=== PATIENT | male | born 1985 | race Caucasian/White ===

== ENCOUNTER 2022-02-04 18:25 | Emergency (ER) | payer BC, SELFPAY ==
[2022-02-04 18:28] VITALS: BP 121/85; PULSE 89; RESP 16; TEMP 36.3; O2SAT 97
--- NOTE | 2022-02-04 18:30 | DI.RAD_ITS ---
Exam(s) XR FINGER RT INDEX EXAM: XR FINGER RT INDEX CLINICAL HISTORY: finger vs rebar. TECHNIQUE: 2D digital imaging was performed of the right finger. Three views were obtained. PA/AP, oblique, and lateral views were obtained. COMPARISON: No exams were available for comparison FINDINGS: BONES: No acute fracture is present. No bony destructive lesion is seen. JOINTS: No dislocation present. SOFT TISSUE: Normal. IMPRESSION: No evidence of acute fracture, dislocation, or subluxation. DATA REPOSITORY: RADIATION DOSE DELIVERED:
--- NOTE | 2022-02-04 18:35 | W.ED.GENAD ---
Discharge Plan Disposition Patient Disposition: HOME Condition: Stable Discharge Details Clinical Impression: Laceration of finger of right hand Primary Care Provider: Unknown,Unknown ED Provider: Jeremi Suresh Home Meds and New Rx's Prescriptions: No Action No Known Home Meds Discharge Instructions Instructions: Finger Laceration (ED) Additional Instructions: X-ray is unremarkable. [id number] Tylenol and/or Motrin as directed for discomfort. Change antibiotic dressing daily. Wear splint to avoid bending your joint for the next 7 days. Please watch for new or worsening symptoms and return to the ER for any concerns. Medical Decision Making 37-year-old male, [id number], presents after he was hammering a piece of steel, missed, and struck his hand on the piece of rebar, he was not wearing gloves. There is a laceration present but is an avulsion in nature and there is nothing to repair. Will obtain x-ray to rule out any bony involvement. Patient believes tetanus status is up-to-date. X-ray unremarkable. The wound was thoroughly cleaned. Remains neuro, vascular, tendon intact. No closure required. Antibiotic dressing and finger splint applied. Standard discharge and return precautions were provided. Patient understands, is agreeable to this plan, and has no additional questions or concerns upon discharge. This documentation was generated using [employer] dictation system, please disregard any oddities of phrase or misspellings. Imaging Data Radiologic Study: Attestation: I personally reviewed and interpreted this imaging study as follows: Imaging: X-Ray Radiologist's impression: PROCEDURE INFORMATION: Exam: XR Right Finger(s) Exam date and time: 02/04/2022 18:53 Age: 37 years old Clinical indication: Injury or trauma; Other: Finger vs rebar; Crushing; Right; Index finger; Injury date: 02/04/22 TECHNIQUE: Imaging protocol: Radiologic exam of the Right fingers. Views: Minimum 2 views. COMPARISON: No relevant prior studies available. FINDINGS: Bones/joints: No acute fracture or subluxation. Soft tissues: Digital soft tissue swelling. IMPRESSION: No acute bony pathology. HPI General Mode of arrival: ambulatory. Date/Time Provider Initiated Documentation: 02/04/22 18:34. Limitations to Documentation: no limitations. Information obtained by: patient. History of Present Illness 37 year old M presents to the emergency department with the chief complaint of R index finger injury, described as mild, with intensity rated at 2. Quality is described as aching, and is localized to the right and upper extremity. Patient reports no radiation. Patient started experiencing this hour(s) (1) and it has been constant. No relieving factors improve symptom(s), Movement worsens symptoms . Patient notes no other symptoms.. Patient did receive the following treatments prior to arrival, none Related Data Home Medications Medication Instructions Recorded Confirmed Unknown [No Known Home Meds] 02/04/22 02/04/22 Allergies Allergy/AdvReac Type Severity Reaction Status Date / Time No Known Allergies Allergy Unverified 02/04/22 18:31 General Stated Complaint: Orthopedic MARISA: 4 Review of Systems Constitutional Constitutional: Denies fever(s) and Denies weakness Musculoskeletal Musculoskeletal: Denies deformity, Denies numbness, Reports stiffness and Denies tingling Integumentary/Breasts Skin/Breast: Denies erythema Neurologic Neurologic: Denies numbness, Denies tingling and Denies weakness PFSH All Active Problems Laceration of finger of right hand (Acute) Social History Smoking/Tobacco Use Status: Never Smoking risk assessment performed?: Yes Alcohol Intake: never Drug use: Never Substance use type: marijuana Do you feel safe at home: Yes Do you feel safe in your relationship?: Yes Exam Const General: cooperative, healthy appearing, comfortable and no acute distress Orientation: alert and awake [facility] Head: normal to inspection, normocephalic and atraumatic Eyes General: appearance normal, both eyes and all related structures Conjunctivae: conjunctivae normal Neck Neck: normal visual inspection, full ROM, trachea midline and supple Resp Effort & Inspection: normal respiratory effort and able to speak in complete sentences Cardio Rate: regular rate Rhythm: regular rhythm Skin General skin exam: no rashes or lesions noted Neuro General: patient alert, patient awake, moves all extremities and no focal motor deficits Cognition: normal cognition Speech: speech normal Gait: normal gait Motor: muscle tone normal throughout Sensory Exam: no sensory deficits noted Extrem General: full ROM and capillary refill normal Hand/finger images: 1. There is a 1 cm irregular avulsion laceration. 5 of 5 strength. Neuro, vascular, tendon intact. Normal radial pulse and capillary refill. No active bleeding or obvious foreign body Psych Appearance: grossly normal Mental Status: mental status grossly normal Course Vital Signs Vital signs: Vital Signs Temperature 36.3 C L 02/04/22 18:28 Pulse 89 02/04/22 18:28 Respiratory Rate 16 02/04/22 18:28 Blood Pressure 121/85 02/04/22 18:28 Pulse Oximetry 97 02/04/22 18:28 Temperature 36.3 C L 02/04/22 18:28 Temperature Source Temporal Artery Scan 02/04/22 18:28 Pulse 89 02/04/22 18:28 Respiratory Rate 16 02/04/22 18:28 Respiratory Effort 02/04/22 18:30 Blood Pressure 121/85 02/04/22 18:28 Blood Pressure Position Sitting 02/04/22 18:28 Pulse Oximetry 97 02/04/22 18:28 Oxygen Delivery Method Room Air 02/04/22 18:28 Oxygen Flow Rate 0 02/04/22 18:28 Pain Level 3 02/04/22 18:28
--- NOTE | 2022-02-04 19:14 | DI.VRAD_ITS ---
PROCEDURE INFORMATION: Exam: XR Right Finger(s) Exam date and time: 02/04/2022 18:53 Age: 37 years old Clinical indication: Injury or trauma; Other: Finger vs rebar; Crushing; Right; Index finger; Injury date: 02/04/22 TECHNIQUE: Imaging protocol: Radiologic exam of the Right fingers. Views: Minimum 2 views. COMPARISON: No relevant prior studies available. FINDINGS: Bones/joints: No acute fracture or subluxation. Soft tissues: Digital soft tissue swelling. IMPRESSION: No acute bony pathology. Dictated and Authenticated by: Liz Alvarez MD. Ordering:SIVA Blood MD
== END 2022-02-04 19:19 | disposition home or self-care (01) ==
PROVIDERS: Emergency Provider Physician Assistant
DX: S61.210A Laceration without foreign body of right index finger without damage to nail, initial encounter (principal); W26.8XXA Contact with other sharp object(s), not elsewhere classified, initial encounter; Y93.89 Activity, other specified
CPT/HCPCS: 99283; 73140; 99282

== ENCOUNTER 2022-03-22 10:28 | Emergency (ER) | payer BC, SELFPAY ==
[2022-03-22] VITALS (24 sets, daily range): BP systolic 116–124; BP diastolic 76–91; PULSE 52–79; RESP 10–22; TEMP 36.6–36.7; O2SAT 97–100
--- NOTE | 2022-03-22 10:30 | RT.EKG_ITS ---
APPROVED REPORT Exam: Resting ECG Reason for Exam: syncope Patient Location: E HR:60 bpm ECG Measurements Heart Rate 60 AXIS NV 44 P 29 QRSd 80 QRS 69 QT 397 T 62 QTc 398 Conclusion Sinus rhythm...normal P axis, V-rate 60- 99 Nonspecific T abnrm, anterolateral leads...T <-0.10mV, I aVL V2-V6 sinus rhythm, normal axis, normal intervals, t wave inversions V1 V2
--- NOTE | 2022-03-22 10:45 | DI.CT_ITS ---
Exam(s) CT HEAD CERV SPINE FACIAL WO EXAM: CT HEAD CERV SPINE FACIAL WO CLINICAL HISTORY: syncope,L deep neck/jaw pain. TECHNIQUE: Imaging Protocol: Axial computed tomography images with coronal and sagittal reformatted images were created and reviewed COMPARISON: No exams were available for comparison FINDINGS: CT BRAIN: There are no skull fractures nor fluid in the visualized paranasal sinuses. There is no evidence of intracranial hemorrhage, mass effect, or shift of midline structures. There are no extra-axial fluid collections. The ventricles are not enlarged or shifted and there is no blo od within the ventricular system nor within the basal cisterns. CT MAXILLOFACIAL BONES: There is no evidence of facial fractures nor fluid in the visualized paranasal sinuses. there is no evidence of orbital blowout fracture. CT CERVICAL SPINE: There is no evidence of fracture nor listhesis. No significant prevertebral soft tissue swelling. Mild degenerative changes are seen in right sided facet joint at the C 3-4 and C4-5 levels; less so o n the left side. No facet malalignment evident. No significant osseous lesions evident. There is moderate disc space narrowing at C6-7 level. Other disc spaces exhibit normal height. IMPRESSION: No acute intracranial findings on this noninfused CT scan of the brain. No evidence of facial nor orbital blowout fractures. No evidence of cervical spine fracture, malalignment, nor acute compromise of the cervical spinal can al. RADIATION DOSE DELIVERED: 2,207.58mGy.cm Total DLP DATA REPOSITORY: All CT scans at this facility are submitted to the National Radiology Data Registry (NRDR) Dose Index Registry (DIR) with the [employer] ([employer]). RADIATION OPTIMIZATION: All CT scans at this facility use at least one of these dose optimization te chniques: automated exposure control; mA and/or kV adjustment per patient size (includes targeted exa ms where dose is matched to clinical indication); or iterative reconstruction.
--- NOTE | 2022-03-22 11:01 | W.ED.GENAD ---
Discharge Plan Disposition Patient Disposition: HOME Condition: Stable Discharge Details Clinical Impression: Syncope, Neck pain Primary Care Provider: Unknown,Unknown ED Provider: Jeremi Suresh Home Meds and New Rx's Prescriptions: No Action No Known Home Meds Discharge Instructions Instructions: Syncope (ED), Neck Pain (ED) Additional Instructions: As we discussed your work-up in the ER does not reveal any obvious emergent process. Teir-vsd-[id number] medications such as Tylenol and Motrin as directed for symptomatic control. Gentle stretching as tolerated. Cool and/or warm compresses every 2 hours for 20 minutes. Please watch for new or worsening symptoms and return to the ER for any concerns. I have placed you on the care management list to expedite outpatient primary care follow-up Discharge Data Discharge Date/Time-TO BE ENTERED AT DEPARTURE: 03/22/22 14:11 Medical Decision Making 37-year-old gentleman who had a syncopal episode last night, and struck his head and injured his neck. While I am unable to reproduce or palpate any neck discomfort he describes it deep on the left side in his neck-jaw. No evidence of trismus, dislocation, etc. It would appear his dilated vasovagal episode from pain, while having a bowel movement, but given his presentation will obtain EKG and laboratory values. We will place the patient into a c-collar and obtain CT imaging of his head, face, C-spine. Laboratory values are unremarkable for any obvious emergent process including a troponin less than 50. CT imaging of the head, C-spine, face does not reveal any obvious emergent process or acute traumatic process. Mild left facet spurring osteoarthritic sclerosis at C2-C3. No significant disc protrusion. Mild central endplatespurring that might be associated with slight ossification posterior longitudinal ligament C6-C7, along with disc bulge. We did discuss the spurring as well as the bulge. Patient was given IV Toradol and his c-collar was removed. I did place him on the care management list to help expedite outpatient primary care follow-up. Standard discharge and return precautions were provided. Patient understands, is agreeable to this plan, and has no additional questions or concerns upon discharge. This documentation was generated using [employer] system, please disregard any oddities of phrase or misspellings. Medical Records Medical records reviewed: Yes I reviewed the patient's medical records. Imaging Data Radiologic Study: Attestation: I personally reviewed and interpreted this imaging study as follows: Imaging: CT Scan Radiologist's impression: PROCEDURE INFORMATION: Exam: CT Head Without Contrast Exam date and time: 03/22/2022 11:14 AM Age: 37 years old Clinical indication: Other: Syncope, L deep neck and jaw pain TECHNIQUE: Imaging protocol: Computed tomography of the head without contrast. Radiation optimization: All CT scans at this facility use at least one of these dose optimization techniques: automated exposure control; mA and/or kV adjustment per patient size (includes targeted exams where dose is matched to clinical indication); or iterative reconstruction. COMPARISON: No relevant prior studies available. FINDINGS: Brain: No shift, mass, mass effect, or acute hemorrhage. Normal white matter density for age. No subdural hematoma. Cerebral ventricles: No unusual ventriculomegaly for age. Pituitary gland and sella: No obvious mass or expansile change. Paranasal sinuses: Visualized sinuses are unremarkable. No fluid levels. Mastoid air cells: Visualized mastoid air cells are well aerated. Orbital cavities: Unremarkable by this method. Bones/joints: Unremarkable. No acute fracture. No destructive lesion. Soft tissues: Unremarkable. Vasculature: Unremarkable. IMPRESSION: No acute intracranial abnormality. PROCEDURE INFORMATION: Exam: CT Maxillofacial Without Contrast Exam date and time: 03/22/2022 11:14 AM Age: 37 years old Clinical indication: Other: Syncope, L deep neck and jaw pain TECHNIQUE: Imaging protocol: Computed tomography of the of the face without contrast. Radiation optimization: All CT scans at this facility use at least one of these dose optimization techniques: automated exposure control; mA and/or kV adjustment per patient size (includes targeted exams where dose is matched to clinical indication); or iterative reconstruction. COMPARISON: No relevant prior studies available. FINDINGS: Orbital cavities: Orbits are normal. Globes are unremarkable. Bones/joints: No acute fracture. No orbital wall or rim fracture. Paranasal sinuses: Minimal mucosal thickening along the undersurface of bilateral maxillary Timothy cells, remaining sinus chambers clear. No air-fluid levels. Soft tissues: Unremarkable. IMPRESSION: No acute findings. PROCEDURE INFORMATION: Exam: CT Cervical Spine Without Contrast Exam date and time: 03/22/2022 11:14 AM Age: 37 years old Clinical indication: Other: Syncope, L deep neck and jaw pain TECHNIQUE: Imaging protocol: Computed tomography of the cervical spine without contrast. Radiation optimization: All CT scans at this facility use at least one of these dose optimization techniques: automated exposure control; mA and/or kV adjustment per patient size (includes targeted exams where dose is matched to clinical indication); or iterative reconstruction. COMPARISON: No relevant prior studies available. FINDINGS: Bones/joints: No acute fracture. Straightened cervical lordosis. No subluxation. Mild left facet spurring osteoarthritic sclerosis at C2-C3. No significant disc protrusion. Mild central endplatespurring that might be associated with slight ossification posterior longitudinal ligament C6-C7, along with disc bulge. No significant spinal canal stenosis. Mastoid air cells: Visualized mastoid compartments and skull base are unremarkable. Lungs: Lung apices are normal. Thyroid: No obvious nodule. Lymph nodes: No visualized significant adenopathy or neck mass. Soft tissues: Multiple small calcific tonsilliths both palatine tonsils. IMPRESSION: No acute findings. Thank you for allowing us to participate in the care of your patient. Dictated and Authenticated by: Ronen Dent MD 03/22/2022 11:42 AM Eastern Time ([place] & [place]) Lab Data Lab results reviewed: Yes I reviewed the patient's lab results. Labs: Laboratory Tests Range/Units 03/22/22 03/22/22 10:45 10:45 WBC (4.4-10.8) 10^3/uL 8.88 RBC (4.36-5.78) 10^6/uL 5.40 Hgb (13.5-17.5) g/dL 15.9 Hct (40.0-50.0) % 45.7 MCV (80-95) fL 85 MCH (27.0-33.0) pg 29.4 MCHC (32.0-36.0) % 34.8 RDW (11.8-14.1) % 12.2 Plt Count (130-400) 10^3/uL 172 MPV (8.0-11.0) fL 11.4 H Immature Gran % 0.3 Neutrophils % 73.7 Lymphocytes % 17.0 Monocytes % 5.9 Eosinophils % 2.5 Basophils % 0.6 Nucleated RBC % (0.0-0.3) % 0.0 Absolute Neutrophils (1.2-6.7) 10^3/uL 6.55 Absolute Lymphocytes (1.2-3.4) 10^3/uL 1.51 Absolute Monocytes (0.1-0.8) 10^3/uL 0.52 Absolute Eosinophils (0.0-0.7) 10^3/uL 0.22 Absolute Basophils (0.0-0.2) 10^3/uL 0.05 Sodium (136-145) mmol/L 142 Potassium (3.5-5.1) mmol/L 3.5 Chloride (98-107) mmol/L 104 Carbon Dioxide (21.0-32.0) mmol/L 31.5 Anion Gap (3-11) mmol/L 6.5 BUN (7-18) mg/dL 11 Creatinine (0.70-1.30) mg/dL 1.0 Estimated GFR/1.73 m2 (mL/min/1.73m2) >= 60.00 Glucose (74-106) mg/dL 110 H Calcium (8.5-10.1) mg/dL 8.6 Magnesium (1.8-2.4) mg/dL 1.8 Total Bilirubin (0.2-1.0) mg/dL 0.8 AST (15-37) U/L 17 ALT (16-63) U/L 29 Alkaline Phosphatase (46-116) U/L 77 Troponin I (<or=60) ng/L < 50 Total Protein (6.4-8.2) g/dL 7.3 Albumin (3.4-5.0) g/dL 4.1 ECG Data Attestation: I personally reviewed and interpreted this ECG (s) as follows: Interpretation: Sinus rhythm, ventricular rate of 68. Nonspecific T wave abnormalities, no STEMI. HPI General Mode of arrival: ambulatory. Date/Time Provider Initiated Documentation: 03/22/22 10:34. Limitations to Documentation: no limitations. Information obtained by: patient and family. HPI Narrative: This is a 37-year-old gentleman who reports having had a syncopal episode while on the toilet last night, subsequently falling forward hitting his head reporting deep left-sided neck discomfort. Patient states that he had a rich meal that he does not typically eat, subsequently had abdominal cramping, nausea, diarrhea which is fairly normal after eating a rich meal. While having a bowel movement he had a syncopal episode. Patient states that when he awoke on the ground his head was on the radiator and his neck was in an awkward position. His significant other did hear the fall and see him in the restroom, he was not unconscious for a prolonged period of time. Patient reports that his abdominal pain, nausea, diarrhea has resolved completely. He continues to have the left neck-jaw discomfort. He denies headache, visual changes, posterior neck pain, difficulty breathing or swallowing, chest pain, shortness of breath, numbness, tingling, weakness. Related Data Home Medications Medication Instructions Recorded Confirmed Unknown [No Known Home Meds] 02/04/22 03/22/22 Allergies Allergy/AdvReac Type Severity Reaction Status Date / Time No Known Allergies Allergy Unverified 03/22/22 10:42 General Stated Complaint: Orthopedic MARISA: 3 Review of Systems Constitutional Constitutional: Denies fever(s) and Denies weakness Eyes Eyes: Denies change in vision ENT Ears, Nose, Mouth, and Throat: Reports neck pain Cardiovascular Cardiovascular: Denies chest pain and Denies dyspnea Respiratory Respiratory: Denies cough and Denies dyspnea Musculoskeletal Musculoskeletal: Denies back pain, Reports neck pain, Denies numbness and Denies tingling Integumentary/Breasts Skin/Breast: Denies rash Neurologic Neurologic: Denies numbness, Denies tingling and Denies weakness PFSH All Active Problems Syncope (Chronic) Neck pain (Acute) Social History Smoking/Tobacco Use Status: Never Smoking risk assessment performed?: Yes Alcohol Intake: current Alcohol Intake frequency: holidays/special occasions only Alcohol type: wine Drug use: Occasionally Substance use type: marijuana Do you feel safe at home: Yes Do you feel safe in your relationship?: Yes Exam Const General: cooperative, healthy appearing, comfortable and no acute distress Orientation: alert, awake and oriented x3 HENMT Head: normal to inspection, normocephalic and atraumatic Ears: external ears normal, TM's normal bilaterally and EAC's normal General nose exam: external nose normal Face and sinus: normal facial exam Mouth: moist mucous membranes Throat: posterior oropharynx normal Eyes General: appearance normal, both eyes and all related structures Conjunctivae: conjunctivae normal Neck Neck: normal visual inspection, full ROM, no lymphadenopathy, no meningeal signs, trachea midline, supple and nontender Resp Effort & Inspection: normal respiratory effort and able to speak in complete sentences Auscultation: clear to auscultation bilaterally Cardio Rate: regular rate Rhythm: regular rhythm GI Palpation: soft, not firm, no guarding, no pulsatile masses and nontender Auscultation: normal bowel sounds Back/Spine/Pelvis Back: No back tenderness Skin General skin exam: no rashes or lesions noted Neuro General: patient alert, patient awake, patient oriented x3, moves all extremities and no focal motor deficits Cognition: normal cognition Speech: speech normal Gait: normal gait Motor: muscle tone normal throughout, strength 5/5 throughout, no movement abnormalities noted and no fasciculations Sensory Exam: no sensory deficits noted Extrem General: normal to inspection, full ROM, capillary refill normal, no pedal edema and no calf tenderness Psych Appearance: grossly normal Mental Status: mental status grossly normal Course Vital Signs Vital signs: Vital Signs Temperature 36.6 C 03/22/22 10:34 Pulse 73 03/22/22 10:34 Respiratory Rate 22 03/22/22 10:34 Blood Pressure 124/91 H 03/22/22 10:34 Pulse Oximetry 100 03/22/22 10:34 Temperature 36.6 C 03/22/22 10:34 Temperature Source Temporal Artery Scan 03/22/22 10:34 Pulse 73 03/22/22 10:34 Respiratory Rate 22 03/22/22 10:34 Respiratory Effort Non-Labored 03/22/22 10:39 Blood Pressure 124/91 H 03/22/22 10:34 Blood Pressure Position Sitting 03/22/22 10:34 Pulse Oximetry 100 03/22/22 10:34 Oxygen Delivery Method Room Air 03/22/22 10:34 Oxygen Flow Rate 0 03/22/22 10:34 Pain Level 10 03/22/22 10:39 PAWSS Have you Been Recently Intoxicated or Drunk Within the Last 30 days?: No Have you Ever Experienced Previous Episodes of Alcohol Withdrawal?: No Have you ever Experienced Withdrawal Seizures?: No Have you ever Experienced Delirium Tremens(DT)s?: No Have you ever Experienced Blackouts?: No Have you ever Combined Alcohol with other Downers within the last 90 days?: No Have you ever Combined Alcohol with any other Substance of Abuse during the last 90 days?: No Result: 0
[2022-03-22 11:06] LABS: Abs Immature Grans 0.03 10^3/uL (0.0-0.06); Absolute Basophil Count 0.05 10^3/uL (0.0-0.2); Absolute Eosinophil Count 0.22 10^3/uL (0.0-0.7); Absolute Lymphocyte Count 1.51 10^3/uL (1.2-3.4); Absolute Monocyte Count 0.52 10^3/uL (0.1-0.8); Absolute Neutrophil Count 6.55 10^3/uL (1.2-6.7); Basophils % 0.6; Eosinophils % 2.5; HCT 45.7 % (40.0-50.0); HGB 15.9 g/dL (13.5-17.5); Immature Grans % 0.3; MCH 29.4 pg (27.0-33.0); MCHC 34.8 % (32.0-36.0); MCV 85 fL (80-95); MPV 11.4 fL (8.0-11.0); Monocytes % 5.9; Neutrophils % 73.7; Platelet Count 172 10^3/uL (130-400); RDW 12.2 % (11.8-14.1); RDW-SD 37.7 fL; WBC 8.88 10^3/uL (4.4-10.8)
[2022-03-22 11:25] LABS: ALT 29 U/L (16-63); AST 17 U/L (15-37); Albumin 4.1 g/dL (3.4-5.0); Alkaline Phosphatase 77 U/L (46-116); Anion Gap 6.5 mmol/L (3-11); BUN 11 mg/dL (7-18); Bilirubin, Total 0.8 mg/dL (0.2-1.0); CO2 31.5 mmol/L (21.0-32.0); Calcium 8.6 mg/dL (8.5-10.1); Chloride 104 mmol/L (98-107); Glucose 110 mg/dL (74-106); Magnesium 1.8 mg/dL (1.8-2.4); Potassium 3.5 mmol/L (3.5-5.1); Sodium 142 mmol/L (136-145); Total Protein 7.3 g/dL (6.4-8.2); Troponin I < 50 ng/L (<or=60)
--- NOTE | 2022-03-22 11:43 | DI.VRAD_ITS ---
PROCEDURE INFORMATION: Exam: CT Head Without Contrast Exam date and time: 03/22/2022 11:14 AM Age: 37 years old Clinical indication: Other: Syncope, L deep neck and jaw pain TECHNIQUE: Imaging protocol: Computed tomography of the head without contrast. Radiation optimization: All CT scans at this facility use at least one of these dose optimization techniques: automated exposure control; mA and/or kV adjustment per patient size (includes targeted exams where dose is matched to clinical indication); or iterative reconstruction. COMPARISON: No relevant prior studies available. FINDINGS: Brain: No shift, mass, mass effect, or acute hemorrhage. Normal white matter density for age. No subdural hematoma. Cerebral ventricles: No unusual ventriculomegaly for age. Pituitary gland and sella: No obvious mass or expansile change. Paranasal sinuses: Visualized sinuses are unremarkable. No fluid levels. Mastoid air cells: Visualized mastoid air cells are well aerated. Orbital cavities: Unremarkable by this method. Bones/joints: Unremarkable. No acute fracture. No destructive lesion. Soft tissues: Unremarkable. Vasculature: Unremarkable. IMPRESSION: No acute intracranial abnormality. PROCEDURE INFORMATION: Exam: CT Maxillofacial Without Contrast Exam date and time: 03/22/2022 11:14 AM Age: 37 years old Clinical indication: Other: Syncope, L deep neck and jaw pain TECHNIQUE: Imaging protocol: Computed tomography of the of the face without contrast. Radiation optimization: All CT scans at this facility use at least one of these dose optimization techniques: automated exposure control; mA and/or kV adjustment per patient size (includes targeted exams where dose is matched to clinical indication); or iterative reconstruction. COMPARISON: No relevant prior studies available. FINDINGS: Orbital cavities: Orbits are normal. Globes are unremarkable. Bones/joints: No acute fracture. No orbital wall or rim fracture. Paranasal sinuses: Minimal mucosal thickening along the undersurface of bilateral maxillary Timothy cells, remaining sinus chambers clear. No air-fluid levels. Soft tissues: Unremarkable. IMPRESSION: No acute findings. PROCEDURE INFORMATION: Exam: CT Cervical Spine Without Contrast Exam date and time: 03/22/2022 11:14 AM Age: 37 years old Clinical indication: Other: Syncope, L deep neck and jaw pain TECHNIQUE: Imaging protocol: Computed tomography of the cervical spine without contrast. Radiation optimization: All CT scans at this facility use at least one of these dose optimization techniques: automated exposure control; mA and/or kV adjustment per patient size (includes targeted exams where dose is matched to clinical indication); or iterative reconstruction. COMPARISON: No relevant prior studies available. FINDINGS: Bones/joints: No acute fracture. Straightened cervical lordosis. No subluxation. Mild left facet spurring osteoarthritic sclerosis at C2-C3. No significant disc protrusion. Mild central endplate spurring that might be associated with slight ossification posterior longitudinal ligament C6-C7, along with disc bulge. No significant spinal canal stenosis. Mastoid air cells: Visualized mastoid compartments and skull base are unremarkable. Lungs: Lung apices are normal. Thyroid: No obvious nodule. Lymph nodes: No visualized significant adenopathy or neck mass. Soft tissues: Multiple small calcific tonsilliths both palatine tonsils. IMPRESSION: No acute findings. Dictated and Authenticated by: Ronen Dent MD. Ordering:SIVA Blood MD
--- NOTE | 2022-03-22 11:53 | NUR.NOTE ---
Madelyn Suresh requesting PCP, the patient recently moved to the area and needs a PCP. I have added the information to the caremanagement list. JASS
[2022-03-22] MEDS: Ketorolac 30 MG/ML VIAL IVP (11:56)
== END 2022-03-22 14:11 | disposition home or self-care (01) ==
PROVIDERS: Emergency Provider Physician Assistant
DX: R55 Syncope and collapse (principal); G89.11 Acute pain due to trauma; M54.2 Cervicalgia
CPT/HCPCS: 36415; 80053; 93005; 96374; 99284; 70450; 70486; 72125; 83735; 84484; 85025; 93010; J1885

== ENCOUNTER 2024-02-05 12:57 | Outpatient (REF) | payer BC, SELFPAY ==
[2024-02-05 16:12] LABS: Absolute Basophil Count 0.02 10^3/uL (0.0-0.2); Absolute Eosinophil Count 0.06 10^3/uL (0.0-0.7); Absolute Lymphocyte Count 0.74 10^3/uL (1.2-3.4); Absolute Monocyte Count 0.65 10^3/uL (0.1-0.8); Absolute Neutrophil Count 2.71 10^3/uL (1.2-6.7); Basophils % 0.5 %; Eosinophils % 1.4 %; HCT 43.9 % (40.0-50.0); HGB 14.9 g/dL (13.5-17.5); Lymphocytes % 17.7 %; MCH 28.9 pg (27.0-33.0); MCHC 33.9 % (32.0-36.0); MCV 85 fL (80-95); MPV 12.1 fL (8.0-11.0); Monocytes % 15.6 %; Neutrophils % 64.8 %; Platelet Count 148 10^3/uL (130-400); RBC 5.15 10^6/uL (4.36-5.78); RDW 12.2 % (11.8-14.1); RDW-SD 38.5 fL; WBC 4.18 10^3/uL (4.4-10.8)
[2024-02-05 16:26] LABS: ALT 111 U/L (16-63); AST 81 U/L (15-37); Alkaline Phosphatase 149 U/L (46-116); Anion Gap 7.7 mmol/L (3-11); BUN 13 mg/dL (7-18); Bilirubin, Total 0.77 mg/dL (0.2-1.0); CO2 31.3 mmol/L (21.0-32.0); CREATININE 1.1 mg/dL (0.70-1.30); Calcium 8.7 mg/dL (8.5-10.1); Chloride 101 mmol/L (98-107); Estimated GFR 87.57 (mL/min/1.73m2); Glucose 91 mg/dL (74-106); Potassium 4.3 mmol/L (3.5-5.1); Sodium 140 mmol/L (136-145); Total Protein 7.1 g/dL (6.4-8.2)
[2024-02-07 10:43] LABS: Lyme Ab w Rflx to Lyme Confirm Negative (Negative)
[2024-02-08 21:14] LABS: Anaplasma phagocytophilum Negative (Negative); B. miyamotoi PCR Negative (Negative); Babesia divergens/MO-1 Negative (Negative); Babesia duncani Negative (Negative); Babesia microti Negative (Negative); Ehrlichia chaffeensis Negative (Negative); Ehrlichia ewingii/canis Negative (Negative); Ehrlichia muris eauclairensis Negative (Negative)
== END 2024-02-05 12:58 | disposition home or self-care (01) ==
LOC: LBN 12:57
PROVIDERS: Visit Provider Nurse Practitioner Family
DX: M25.50 Pain in unspecified joint (principal)
CPT/HCPCS: 80053; 87798; 85025; 86618

== ENCOUNTER 2024-03-08 03:23 | Outpatient (CLI) | payer BC, SELFPAY ==
[2024-03-08 13:43] LABS: Abs Immature Grans 0.02 10^3/uL (0.0-0.06); Absolute Basophil Count 0.02 10^3/uL (0.0-0.2); Absolute Eosinophil Count 0.12 10^3/uL (0.0-0.7); Absolute Lymphocyte Count 1.96 10^3/uL (1.2-3.4); Absolute Monocyte Count 0.41 10^3/uL (0.1-0.8); Absolute Neutrophil Count 3.76 10^3/uL (1.2-6.7); Basophils % 0.3 %; Eosinophils % 1.9 %; HCT 43.2 % (40.0-50.0); HGB 14.7 g/dL (13.5-17.5); Immature Grans % 0.3 %; Lymphocytes % 31.2 %; MCV 85 fL (80-95); MPV 11.1 fL (8.0-11.0); Monocytes % 6.5 %; Neutrophils % 59.8 %; Platelet Count 162 10^3/uL (130-400); RBC 5.07 10^6/uL (4.36-5.78); RDW 12.5 % (11.8-14.1); RDW-SD 38.4 fL; WBC 6.29 10^3/uL (4.4-10.8)
[2024-03-08 13:59] LABS: ALT 27 U/L (16-63); AST 19 U/L (15-37); Alkaline Phosphatase 79 U/L (46-116); Anion Gap 9.5 mmol/L (3-11); BUN 14 mg/dL (7-18); Bilirubin, Total 0.67 mg/dL (0.2-1.0); CO2 29.5 mmol/L (21.0-32.0); Calcium 8.8 mg/dL (8.5-10.1); Chloride 105 mmol/L (98-107); Estimated GFR 98.18 (mL/min/1.73m2); Glucose 83 mg/dL (74-106); Sodium 144 mmol/L (136-145); Total Protein 6.9 g/dL (6.4-8.2)
[2024-03-12 00:10] LABS: Anaplasma phagocytophilum Negative (Negative); B. miyamotoi PCR Negative (Negative); Babesia divergens/MO-1 Negative (Negative); Babesia duncani Negative (Negative); Babesia microti Negative (Negative); Ehrlichia chaffeensis Negative (Negative); Ehrlichia ewingii/canis Negative (Negative); Ehrlichia muris eauclairensis Negative (Negative)
== END 2024-03-08 03:24 | disposition home or self-care (01) ==
LOC: LBO 03:23
PROVIDERS: Visit Provider Nurse Practitioner Family
DX: M25.50 Pain in unspecified joint (principal)
CPT/HCPCS: 36415; 80053; 87798; 85025

== ENCOUNTER 2024-04-27 16:08 | Outpatient (CLI) | payer BC, SELFPAY ==
--- NOTE | 2024-04-27 16:29 | DI.RAD_ITS ---
Exam(s) XR CHEST 2V PA LATERAL EXAM: XR CHEST 2V PA LATERAL CLINICAL HISTORY: U07.1 COVID-19 TECHNIQUE: 2D digital imaging was performed of the chest. Two images were obtained. PA and lateral views were obtained. COMPARISON: No exams were available for comparison FINDINGS: MEDIASTINUM: Normal. HEART: Normal. PULMONARY VASCULATURE: Normal. LUNGS: Clear. PLEURAL SPACE: No pleural effusion or pneumothorax. BONE:Within normal limits for the patient's age. OTHER FINDINGS:Normal. IMPRESSION: No acute pulmonary findings. DATA REPOSITORY: RADIATION DOSE DELIVERED:
--- NOTE | 2024-04-27 16:51 | DI.VRAD_ITS ---
PROCEDURE INFORMATION: Exam: XR Chest Exam date and time: 04/27/2024 4:24 PM Age: 39 years old Clinical indication: Other: Covid-19 TECHNIQUE: Imaging protocol: Radiologic exam of the chest. Views: 2 views. COMPARISON: CT HEAD CERV SPINE FACIAL WO 22/03/2022 11:14 FINDINGS: Lungs: Unremarkable. No consolidation. Pleural spaces: Unremarkable. No pleural effusion. No pneumothorax. Heart/Mediastinum: Unremarkable. No cardiomegaly. Bones/joints: Unremarkable for patient's age. IMPRESSION: No acute cardiopulmonary findings. Dictated and Authenticated by: Luciana Irvin MD. Ordering:KOBY Villatoro MD
== END 2024-04-27 16:28 ==
LOC: DI 16:12
PROVIDERS: Visit Provider Physician Assistant Medical
DX: U07.1 COVID-19 (principal)
CPT/HCPCS: 71046